=== PATIENT | male | born 1940 | race Caucasian/White ===

== ENCOUNTER 2019-11-08 09:23 | Day surgery (SDC) | payer MEDICARE ==
[~2019-11-08] VITALS: Ht 185.4 cm; Wt 103.2 kg
[~2019-11-08 09:23] MED LIST: ANAS1TAB PO; ARGININE SQ; ASCO10004 PO; B-12 INJ; CA C1TAB63 PO; CHOL500015 PO; CHROMIUM PO; CITRACAL PO; CO Q-10 PO; COCO1000 PO; CRAN1CAP12 PO; CRANBERRY PO; GARL10002 PO; GLIM1TAB7 PO; GLUC15006 PO; HCG SQ; HYDR25TA6 PO; KRIL1CAP23 PO; LACT1CAP35 PO; LACT1CAP37 PO; LISI40TA PO; LYSI100010 PO; OMEP40CA42 PO; TEST200V IM; VITA1TAB19 PO; VITA400C43 PO; VITAMIN B IM; VITAMIN E PO; ZINC PO; [UNRECOGNIZED DRUG - CODE] SQ; [UNRECOGNIZED DRUG - OTHER] PO; [UNRECOGNIZED DRUG - OTHER] PO; [UNRECOGNIZED DRUG - OTHER] PO; [UNRECOGNIZED DRUG - OTHER] PO; [UNRECOGNIZED DRUG - OTHER] PO
[2019-11-08 09:52] VITALS: BP 122/77
[2019-11-08] MEDS ORDERED: LACTATED RINGERS 1,000 ML IV SCH (10:01)
[2019-11-08] MEDS ORDERED: CARV3.122 PO (10:20)
[2019-11-08] MEDS ORDERED: SACU1TAB PO (10:20)
[2019-11-08] MEDS ORDERED: ASPI-515 PO (10:20)
[2019-11-08] MEDS ORDERED: FLUT9.9S NAS (10:20)
[2019-11-08] MEDS ORDERED: EZET10TA70 PO (10:20)
[2019-11-08] MEDS ORDERED: HGH SQ (10:20)
[2019-11-08] MEDS ORDERED: CLOP75TA PO (10:20)
[2019-11-08] MEDS ORDERED: BUME1TAB21 PO (10:20)
[2019-11-08] MEDS ORDERED: GABA300C PO (10:20)
[2019-11-08] MEDS ORDERED: CLOM50TA17 PO (10:20)
[2019-11-08] MEDS ORDERED: CHLORHEXIDINE 15 ML UDC MM ONE (10:30)
[2019-11-08 10:41] LABS: ALANINE AMINOTRANSFERASE 38 U/L (12-78); ALBUMIN 3.6 g/dL (3.4-5.0); ANION GAP 4 mmol/L (5-15); CALCIUM 9.2 mg/dL (8.5-10.1); CHLORIDE 110 mmol/L (98-107); CREATININE 1.92 mg/dL (0.7-1.3)
[2019-11-08 10:44] LABS: ALKALINE PHOSPHATASE 53 U/L (45-117); BILIRUBIN,TOTAL 0.7 mg/dL (0.2-1.0); TOTAL PROTEIN 6.9 g/dL (6.4-8.2)
[2019-11-08] MEDS ORDERED: FENTANYL PF 100 MCG/2ML ONE (11:35)
[2019-11-08] MEDS ORDERED: PROPOFOL 10 MG/ML, 20ML ONE (11:38)
[2019-11-08] MEDS ORDERED: LIDOCAINE-MPF 2% ,5ML ONE ×2 (11:38)
== END 2019-11-08 13:10 | disposition home or self-care (01) ==
LOC: OUT 09:23
PROVIDERS: ATTEND Internal Medicine Geriatric Medicine
DX: K22.710 Barrett's esophagus with low grade dysplasia (principal); Z11.59 Encounter for screening for other viral diseases; K31.7 Polyp of stomach and duodenum; K21.9 Gastro-esophageal reflux disease without esophagitis; I10 Essential (primary) hypertension; Z79.82 Long term (current) use of aspirin; Z79.899 Other long term (current) drug therapy; Z88.8 Allergy status to other drugs, medicaments and biological substances
CPT/HCPCS: 36415; 43239; 80053; 82962; 87635; 88305; 93005; J2704; J3010; J7120

== ENCOUNTER 2020-10-08 08:03 | Day surgery (SDC) | payer MEDICARE ==
[~2020-10-08] VITALS: Ht 185.4 cm; Wt 103.5 kg
[~2020-10-08 08:03] MED LIST changes: +ASCO100018 PO; -ASCO10004 PO; +ASPI-963 PO; +BUME1TAB21 PO; +CARV3.122 PO; +CLOM50TA17 PO; +CLOP75TA PO; +EZET10TA70 PO; +FLUT9.9S NAS; +GABA300C PO; +HGH SQ; -LACT1CAP37 PO; +LACT1CAP47 PO; -LISI40TA PO; +LISI40TA9 PO; -OMEP40CA42 PO; +OMEP40CA8 PO; +SACU1TAB PO
[2020-10-08] MEDS ORDERED: PROPOFOL 50 ML ONE (08:50)
[2020-10-08] MEDS ORDERED: CHLORHEXIDINE 15 ML UDC ONE (09:15)
[2020-10-08 09:16] VITALS: BP_DIAS 69
[2020-10-08 09:24] VITALS: BP_SYST 69
[2020-10-08 09:27] LABS: ALANINE AMINOTRANSFERASE 37 U/L (12-78); ALBUMIN 3.6 g/dL (3.4-5.0); ANION GAP 6 mmol/L (5-15); CALCIUM 9.1 mg/dL (8.5-10.1); CHLORIDE 108 mmol/L (98-107)
[2020-10-08 09:30] LABS: ALKALINE PHOSPHATASE 51 U/L (45-117); BILIRUBIN,TOTAL 0.8 mg/dL (0.2-1.0); CREATININE 1.85 mg/dL (0.7-1.3); TOTAL PROTEIN 6.8 g/dL (6.4-8.2)
[2020-10-08] MEDS ORDERED: LACTATED RINGERS 1,000 ML IV SCH (09:30)
[2020-10-08] MEDS ORDERED: CHLORHEXIDINE 15 ML UDC PO ONE (09:30)
[2020-10-08] MEDS ORDERED: FENTANYL PF 100 MCG/2ML IV PRN (10:00)
[2020-10-08] MEDS ORDERED: ONDANSETRON 2MG/ML, 2ML IVPush PRN (10:00)
== END 2020-10-08 11:10 | disposition home or self-care (01) ==
LOC: OUT 08:03
PROVIDERS: ATTEND Internal Medicine Geriatric Medicine
DX: Z12.11 Encounter for screening for malignant neoplasm of colon (principal); D12.2 Benign neoplasm of ascending colon; D12.4 Benign neoplasm of descending colon; K22.719 Barrett's esophagus with dysplasia, unspecified; K64.0 First degree hemorrhoids; E11.22 Type 2 diabetes mellitus with diabetic chronic kidney disease; I12.9 Hypertensive chronic kidney disease with stage 1 through stage 4 chronic kidney disease, or unspecified chronic kidney disease; N18.9 Chronic kidney disease, unspecified; E78.5 Hyperlipidemia, unspecified; K21.9 Gastro-esophageal reflux disease without esophagitis; I25.10 Atherosclerotic heart disease of native coronary artery without angina pectoris; E66.9 Obesity, unspecified; Z20.822 Contact with and (suspected) exposure to COVID-19; Z79.82 Long term (current) use of aspirin; Z79.84 Long term (current) use of oral hypoglycemic drugs; Z79.899 Other long term (current) drug therapy; Z88.8 Allergy status to other drugs, medicaments and biological substances; Z95.0 Presence of cardiac pacemaker; Z98.890 Other specified postprocedural states
CPT/HCPCS: 43239; 45380; 80053; 82962; 87635; 88305; 93005; J2704; J7120